=== PATIENT | female | born 1960 ===

== ENCOUNTER 2022-10-18 16:47 | Inpatient (IN) | payer OTHER ==
[~2022-10-18] VITALS: Ht 167.6 cm; Wt 74.8 kg
[2022-10-23] MEDS ORDERED: COZAAR100 MG PO (07:52)
[2022-10-30] MEDS ORDERED: OXYC1TAB9 PO (06:51)
[2022-10-30] MEDS ORDERED: XARELTO10 MG PO (06:51)
[2022-10-30] MEDS ORDERED: BACTRIM DS TAB1 EACH PO (06:51)
[2022-10-30] MEDS ORDERED: INTEGRA PLUS C1 EACH PO (06:51)
== END 2022-10-30 13:08 | DRG 470 ==
LOC: O/R 10-28 06:18 → SURG 10-28 07:30 → SURH 10-28 11:55 → SURG 10-28 17:30 → SURH 10-30 13:08
PROVIDERS: ADMIT Orthopaedic Surgery Sports Medicine; ATTEND Orthopaedic Surgery Sports Medicine
PROC: 0SRD0J9 Replacement of Left Knee Joint with Synthetic Substitute, Cemented, Open Approach (ICD-10-PCS; principal; 2022-10-28 17:30)
DX: M17.12 Unilateral primary osteoarthritis, left knee (principal); I10 Essential (primary) hypertension; Z96.652 Presence of left artificial knee joint; Z20.822 Contact with and (suspected) exposure to COVID-19